=== PATIENT | male | born 1930 | race Caucasian/White ===

== ENCOUNTER → 2018-01-26 | Outpatient (CLI) | payer MEDICARE, BC ==
--- NOTE | 2018-01-26 12:01 | US ---
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 No nephrolithiasis is seen. No forest s are identified. The urinary bladder is anechoic. IMPRESSION: 1. Right-sided nephrectomy changes. 2. Urinary bladder diverticulum.
== END ==
LOC: RADUSWWP 10:59
PROVIDERS: ATTEND Internal Medicine Nephrology
DX: N32.3 Diverticulum of bladder (principal); Z90.5 Acquired absence of kidney
CPT/HCPCS: 76770

== ENCOUNTER 2019-04-04 23:44 | Emergency (ER) | payer MEDICARE, BC ==
[2019-04-04 23:55] VITALS: BP 126/67; PULSE 65; RESP 18; TEMP 99.4
--- NOTE | 2019-04-05 00:32 | XR ---
EXAMINATION TYPE: XR chest 2V DATE OF EXAM: 04/05/2019 COMPARISON: NONE HISTORY: Cough TECHNIQUE: Frontal and lateral views of the chest are obtained. FINDINGS: Heart and mediastinum appear normal. Lungs are clear of infiltrate. There is mild pulmonar y hyperinflation. There are no hilar masses. Bony thorax is intact. There is osteopenia. There is mild scarring at the right lung apex. IMPRESSION: COPD. No active cardiopulmonary disease.
[2019-04-05 00:52] LABS: Basophils # (A) 0.3 k/uL (0-0.2); Basophils % (A) 3 %; Eosinophils % (A) 0 %; HCT 40.4 % (39.0-53.0); HGB 12.5 gm/dL (13.0-17.5); Lymphocytes # (A) 1.7 k/uL (1.0-4.8); Lymphocytes % (A) 17 %; MCH 28.1 pg (25.0-35.0); MCHC 30.9 g/dL (31.0-37.0); MCV 91.1 fL (80.0-100.0); Mean Platelet Volume 7.4; Monocytes # (A) 0.8 k/uL (0-1.0); Monocytes % (A) 8 %; Neutrophils % (A) 70 %; Platelet Count 199 k/uL (150-450); RBC 4.44 m/uL (4.30-5.90); RDW 14.2 % (11.5-15.5)
[2019-04-05 00:58] LABS: Calcium 8.7 mg/dL (8.4-10.2); Potassium 4.3 mmol/L (3.5-5.1); Total Bilirubin 0.6 mg/dL (0.2-1.3); Total Protein 6.9 g/dL (6.3-8.2)
[2019-04-05 01:03] LABS: Partial Thromboplastin Time 27.6 sec (22.0-30.0); Prothrombin Time 11.1 sec (9.0-12.0)
[2019-04-05] MEDS ORDERED: AZITHROMYCIN 500 MG TAB PO STA (02:41)
--- NOTE | 2019-04-05 02:42 | ED ---
URI HPI - General Chief Complaint: Upper Respiratory Infection Stated Complaint: Upper Resp Time Seen by Provider: 04/05/19 02:33 Source: patient Mode of arrival: ambulatory Limitations: no limitations - History of Present Illness Initial Comments: Ephraim is a pleasant 88 yo male who presents to the emergency department today for evaluation of productive cough. Patient reports that a little over a week ago he had a mechanical trip and fall in which he struck his anterior chest he was evaluated at that time and told he didn't have any broken ribs. Patient reports he's continued to have some pleuriticNo evidence of ACS, pericarditis, myocarditis, pulmonary embolism, pneumothorax, pneumonia, Zoster, or esophageal perforation. Historically not abrupt in onset, tearing or ripping, pulses symmetric, no evidence of aortic dissection. An has developed a minimally productive cough with no fevers or shortness of breath. Patient states that he was told if he developed a productive cough he needs to be reevaluated because there is high risk of developing pneumonia after chest trauma. Patient reports the cough is been present for approximately 2 days, he doesn't feel that he is wheezing he hasn't been using his inhaler he doesn't feel short of breath he's had no exertional chest pain, he just reports any pain with palpation of his chest wall or with deep breaths, this is unchanged since the injury. - Related Data Home Medications Medication Instructions Recorded Confirmed Albuterol Inhaler [Ventolin Hfa 2 puff INHALATION RT-Q6H PRN 10/04/15 12/09/15 Inhaler] Aspirin 81 mg PO DAILY 10/04/15 12/09/15 Atorvastatin [Lipitor] 40 mg PO HS 10/04/15 12/09/15 Lisinopril [Zestril] 20 mg PO HS 10/04/15 12/09/15 Multivitamins, Thera [Multivitamin] 1 tab PO DAILY 10/04/15 12/09/15 Spironolactone [Aldactone] 25 mg PO DAILY 10/04/15 12/09/15 Ubidecarenone [Co Q-10] 100 mg PO DAILY 10/04/15 12/09/15 Previous Rx's Medication Instructions Recorded Azithromycin [Zithromax Z-pack] 0 mg PO DIRECTED #6 tab 04/05/19 Allergies Allergy/AdvReac Type Severity Reaction Status Date / Time No Known Allergies Allergy Verified 04/04/19 23:55 Review of Systems ROS Statement: Those systems with pertinent positive or pertinent negative responses have been documented in the HPI. ROS Other: All systems not noted in ROS Statement are negative. Past Medical History Past Medical History: Hyperlipidemia, Hypertension History of Any Multi-Drug Resistant Organisms: None Reported Past Surgical History: Heart Catheterization With Stent, Tonsillectomy Additional Past Surgical History / Comment(s): right nephrectomy Past Psychological History: No Psychological Hx Reported Smoking Status: Never smoker Past Alcohol Use History: Occasional Past Drug Use History: None Reported General Exam - General Exam Comments Initial Comments: Physical Exam GENERAL: Patient is well-developed and well-nourished. Patient is nontoxic and well- hydrated and is in no distress. HENT: Normocephalic, Atraumatic. EYES: PERRL, EOMI PULMONARY: Unlabored respirations. No audible rales rhonchi or wheezing was noted. CARDIOVASCULAR: There is a regular rate and rhythm without any murmurs gallops or rubs. ABDOMEN: Soft and nontender with normal bowel sounds. SKIN: Skin is clear with no lesions or rashes and otherwise unremarkable. : Deferred NEUROLOGIC: Patient is alert and oriented x3. Moving all extremities spontaneously MUSCULOSKELETAL: Normal extremities with adequate strength and full range of motion. No lower extremity swelling or edema. No calf tenderness. PSYCHIATRIC: Normal psychiatric evaluation. Limitations: no limitations Course Vital Signs 04/04/19 23:52 Temperature 99.4 F Pulse Rate 65 Respiratory 18 Rate Blood Pressure 126/67 O2 Sat by Pulse 95 Oximetry Medical Decision Making - Medical Decision Making Patient was triaged and ATP orders were placed Patient's vital signs are stable he's not hypoxic 3 with no focal consolidation however clinically the patient does have a productive cough and it isn't chest wall trauma therefore we will treat for presumed pneumonia Labs with no significant abnormalities from patient's baseline At this time patient's comfortable with plan for discharge home and outpatient management of possible pneumonia. First dose of azithromycin will be given here in the ER. - Lab Data Result diagrams: 04/05/19 00:08 04/05/19 00:08 Lab Results 04/05/19 04/05/19 04/05/19 Range/Units 00:08 00:08 00:08 WBC 10.0 (3.8-10.6) k/uL RBC 4.44 (4.30-5.90) m/uL Hgb 12.5 L (13.0-17.5) gm/dL Hct 40.4 (39.0-53.0) % MCV 91.1 (80.0-100.0) fL MCH 28.1 (25.0-35.0) pg MCHC 30.9 L (31.0-37.0) g/dL RDW 14.2 (11.5-15.5) % Plt Count 199 (150-450) k/uL Neutrophils % 70 % Lymphocytes % 17 % Monocytes % 8 % Eosinophils % 0 % Basophils % 3 % Neutrophils # 7.0 (1.3-7.7) k/uL Lymphocytes # 1.7 (1.0-4.8) k/uL Monocytes # 0.8 (0-1.0) k/uL Eosinophils # 0.0 (0-0.7) k/uL Basophils # 0.3 H (0-0.2) k/uL PT 11.1 (9.0-12.0) sec INR 1.0 (<1.2) APTT 27.6 (22.0-30.0) sec Sodium 141 (137-145) mmol/L Potassium 4.3 (3.5-5.1) mmol/L Chloride 106 (98-107) mmol/L Carbon Dioxide 26 (22-30) mmol/L Anion Gap 9 mmol/L BUN 32 H (9-20) mg/dL Creatinine 1.84 H (0.66-1.25) mg/dL Est GFR (CKD-EPI)AfAm 37 (>60 ml/min/1.73 sqM) Est GFR (CKD-EPI)NonAf 32 (>60 ml/min/1.73 sqM) Glucose 103 H (74-99) mg/dL Calcium 8.7 (8.4-10.2) mg/dL Total Bilirubin 0.6 (0.2-1.3) mg/dL AST 26 (17-59) U/L ALT 22 (21-72) U/L Alkaline Phosphatase 83 (38-126) U/L Troponin I (0.000-0.034) ng/mL Total Protein 6.9 (6.3-8.2) g/dL Albumin 4.0 (3.5-5.0) g/dL 04/05/19 Range/Units 00:08 WBC (3.8-10.6) k/uL RBC (4.30-5.90) m/uL Hgb (13.0-17.5) gm/dL Hct (39.0-53.0) % MCV (80.0-100.0) fL MCH (25.0-35.0) pg MCHC (31.0-37.0) g/dL RDW (11.5-15.5) % Plt Count (150-450) k/uL Neutrophils % % Lymphocytes % % Monocytes % % Eosinophils % % Basophils % % Neutrophils # (1.3-7.7) k/uL Lymphocytes # (1.0-4.8) k/uL Monocytes # (0-1.0) k/uL Eosinophils # (0-0.7) k/uL Basophils # (0-0.2) k/uL PT (9.0-12.0) sec INR (<1.2) APTT (22.0-30.0) sec Sodium (137-145) mmol/L Potassium (3.5-5.1) mmol/L Chloride (98-107) mmol/L Carbon Dioxide (22-30) mmol/L Anion Gap mmol/L BUN (9-20) mg/dL Creatinine (0.66-1.25) mg/dL Est GFR (CKD-EPI)AfAm (>60 ml/min/1.73 sqM) Est GFR (CKD-EPI)NonAf (>60 ml/min/1.73 sqM) Glucose (74-99) mg/dL Calcium (8.4-10.2) mg/dL Total Bilirubin (0.2-1.3) mg/dL AST (17-59) U/L ALT (21-72) U/L Alkaline Phosphatase (38-126) U/L Troponin I 0.016 (0.000-0.034) ng/mL Total Protein (6.3-8.2) g/dL Albumin (3.5-5.0) g/dL Disposition Clinical Impression: Upper respiratory tract infection Disposition: HOME SELF-CARE Condition: Stable Instructions (If sedation given, give patient instructions): Upper Respiratory Infection (ED) Prescriptions: Azithromycin [Zithromax Z-pack] 0 mg PO DIRECTED #6 tab Is patient prescribed a controlled substance at d/c from ED?: No Referrals: Quentin Mascorro MD [Primary Care Provider] - 1-2 days
== END 2019-04-05 03:23 | disposition home or self-care (01) ==
LOC: EC 23:44
DX: J06.9 Acute upper respiratory infection, unspecified (principal); E78.5 Hyperlipidemia, unspecified; I10 Essential (primary) hypertension; Z79.82 Long term (current) use of aspirin; Z79.899 Other long term (current) drug therapy; Z95.5 Presence of coronary angioplasty implant and graft; Z90.5 Acquired absence of kidney; W01.0XXA Fall on same level from slipping, tripping and stumbling without subsequent striking against object, initial encounter
CPT/HCPCS: 36415; 71046; 80053; 84484; 85025; 85610; 85730; 93005; 99284

== ENCOUNTER → 2020-08-28 | Outpatient (CLI) | payer MEDICARE, BC ==
--- NOTE | 2020-09-07 10:13 | HM ---
This is a report on the 24-hour DCG. Baseline EKG showed sinus rhythm. The average heart rate is about 59 bpm. The minimum is 45 and maximum is 88. Patient had occasional APCs couplets and triplets with a brief episodes of nonsustained SVT consisting of 45 beats. Patient also had occasional PVCs with couplets and triplets and bigeminy pattern. Patient had one episode of nonsustained V. tach consisting of 4 beats at a rate of 1:30. Patient did not report any cardiac symptoms. Final impression: #1. Sinus rhythm. #2. Occasional APCs with presence of occasional couplets, triplets and brief episodes of nonsustained SVT consisting of 4 beats. No sustained SVT #3. Occasional PVCs with rare couplets and an episode of nonsustained V. tach consisting of 4 beats. #4. Patient has been asymptomatic without any reported symptoms. [facility]
== END | disposition home or self-care (01) ==
LOC: RADECHMAIN 12:26
PROVIDERS: ATTEND Family Medicine
DX: I49.3 Ventricular premature depolarization (principal); I49.1 Atrial premature depolarization
CPT/HCPCS: 93225; 93226